=== PATIENT | male | born 1960 | race Two or more races ===

== ENCOUNTER 2017-02-21 12:03 | Emergency (ER) | payer OTHER ==
[~2017-02-21] VITALS: Ht 170.2 cm; Wt 88.9 kg
[~2017-02-21 12:03] MED LIST: AMLO5TAB2 PO; ASPI81TA2 PO; CHOLESTEROL MED
[2017-02-21 12:08] VITALS: BP 126/84
--- NOTE | 2017-02-21 12:11 | NUR ---
Pt ambulatory to ed bed 09 with c/o left leg pain s/p fall on wednesday, denies KO. pt sts pain is worse when walking/moving. vss nad rr even and unlabored. skin is warm and non diaphoretic. pending er md sotelo
--- NOTE | 2017-02-21 14:46 | NUR ---
Patient discharged to home in stable condition. Written and verbal after care instructions given. Patient verbalizes understanding of instruction.
== END 2017-02-21 14:42 | disposition home or self-care (01) ==
LOC: ER 12:08
DX: S92.352A Displaced fracture of fifth metatarsal bone, left foot, initial encounter for closed fracture (principal); I10 Essential (primary) hypertension; E78.00 Pure hypercholesterolemia, unspecified; F10.10 Alcohol abuse, uncomplicated; Z79.82 Long term (current) use of aspirin; Z95.818 Presence of other cardiac implants and grafts; Z90.89 Acquired absence of other organs; W01.0XXA Fall on same level from slipping, tripping and stumbling without subsequent striking against object, initial encounter; Y93.89 Activity, other specified; Y92.89 Other specified places as the place of occurrence of the external cause; Y99.8 Other external cause status
CPT/HCPCS: 29515; 73630; 99284; A4606; Z7610

== ENCOUNTER 2020-05-02 14:56 | Emergency (ER) | payer MEDICAID, OTHER ==
[~2020-05-02] VITALS: Ht 170.2 cm; Wt 74.8 kg
[~2020-05-02 14:56] MED LIST changes: +AMLO-212 PO; -AMLO5TAB2 PO; +ASPI-1169 PO; -ASPI81TA2 PO
--- NOTE | 2020-05-02 15:28 | NUR ---
[id number] 93% AFTER AMBULATING, DR MALAVE INFORMED,CXR AND PCR SWAB ORDE
--- NOTE | 2020-05-02 17:27 | NUR ---
LOOKED FOR PATIENT OUTSIDE THE WAITING ROOM. UNABLE TO FIND PATIENT. CALLED PATIENT'S PHONE NUMBER AND STATED HE WENT HOME. PCR RESULT GIVEN OVER THE PHONE. Verbal after care instructions given. Patient verbalizes understanding of instruction.
[2020-05-02 17:28] VITALS: BP 121/68
== END 2020-05-02 17:28 | disposition left against medical advice (07) ==
LOC: ER 14:57
DX: U07.1 COVID-19 (principal); R42 Dizziness and giddiness; I10 Essential (primary) hypertension; Z95.5 Presence of coronary angioplasty implant and graft; E78.00 Pure hypercholesterolemia, unspecified; Z79.82 Long term (current) use of aspirin; Z79.899 Other long term (current) drug therapy
CPT/HCPCS: 71045; 87426; 99284; C9803

== ENCOUNTER 2024-01-02 21:37 | Emergency (ER) | payer MEDICAID, OTHER ==
[~2024-01-02] VITALS: Ht 167.6 cm; Wt 86.2 kg
[2024-01-02] MEDS ORDERED: ONDANSETRON HCL/PF 4 MG/2 ML VIAL ONE (22:55)
[2024-01-02] MEDS ORDERED: MORPHINE SULFATE INJ 2 MG/ML DISP.SYRIN ONE (22:55)
[2024-01-02] MEDS: ONDANSETRON HCL/PF - ER 4 MG/2 ML VIAL IV ONE (22:56)
[2024-01-02] MEDS: MORPHINE SULFATE INJ 2 MG/ML DISP.SYRIN IV ONE (22:56)
[2024-01-02 23:02] LABS: BASOPHILS % (AUTO) 0.3 % (0.0-2.0); EOSINOPHILS # (AUTO) 0.1 K/uL (0.0-0.7); EOSINOPHILS % (AUTO) 1.5 % (0.0-6.0); HEMATOCRIT 44 % (39-51); LYMPHOCYTES # (AUTO) 1.9 K/uL (0.8-4.8); LYMPHOCYTES % (AUTO) 21.4 % (20.0-44.0); MEAN CORPUSCULAR HEMOGLOBIN 29 PG (26.0-33.0); MEAN CORPUSCULAR HGB CONC 34 g/dl (31.0-36.0); MEAN CORPUSCULAR VOLUME 84 fL (80-96); MONOCYTES # (AUTO) 0.7 K/uL (0.1-1.30); MONOCYTES % (AUTO) 7.4 % (2.0-12.0); NEUTROPHILS # (AUTO) 6.2 K/uL (1.8-8.9); NEUTROPHILS % (AUTO) 69.4 % (43.0-81.0); PLATELET COUNT (AUTO) 193 K/uL (150-450); RED BLOOD CELL COUNT(AUTO) 5.24 MIL/uL (4.5-6.0); RED CELL DISTRIBUTION WIDTH 14.3 % (11.5-15.0)
[2024-01-02 23:22] LABS: ALBUMIN 3.4 g/dL (3.4-5.0); BILIRUBIN,TOTAL 0.5 mg/dL (0.2-1.0); CREATININE 0.8 mg/dL (0.6-1.3); POTASSIUM 4.3 mmol/L (3.5-5.1); TOTAL PROTEIN, SERUM 6.5 g/dL (6.4-8.2)
[2024-01-02 23:23] LABS: LACTIC ACID 0.8 mmol/L (0.4-2.0)
[2024-01-03] MEDS ORDERED: OMEP20TA20 PO (00:18)
[2024-01-03 00:36] VITALS: BP 136/78; TEMP 98; O2SAT 96
== END 2024-01-03 00:37 | disposition home or self-care (01) ==
LOC: ER 21:41
DX: K44.9 Diaphragmatic hernia without obstruction or gangrene (principal); K57.90 Diverticulosis of intestine, part unspecified, without perforation or abscess without bleeding; R10.13 Epigastric pain; I10 Essential (primary) hypertension; E78.00 Pure hypercholesterolemia, unspecified; R06.02 Shortness of breath
CPT/HCPCS: 99285; 74176; 96374; 71045; 96375; 93005; 85025; 83605; 83690; 36415; 80053; 84484; 83880; J2405 ×2; J2270

== ENCOUNTER 2024-08-23 17:04 | Inpatient (IN) | payer OTHER ==
[~2024-08-23] VITALS: Ht 167.6 cm; Wt 82.6 kg
[~2024-08-23 17:04] MED LIST changes: +OMEP20TA20 PO
[2024-08-23 17:42] LABS: BASOPHILS % (AUTO) 0.3 % (0.0-2.0); EOSINOPHILS # (AUTO) 0.1 K/uL (0.0-0.7); EOSINOPHILS % (AUTO) 1.5 % (0.0-6.0); HEMATOCRIT 47 % (39-51); HEMOGLOBIN 16.2 g/dL (13.5-17.5); LYMPHOCYTES # (AUTO) 1.1 K/uL (0.8-4.8); LYMPHOCYTES % (AUTO) 13.4 % (20.0-44.0); MEAN CORPUSCULAR HEMOGLOBIN 29 PG (26.0-33.0); MEAN CORPUSCULAR HGB CONC 35 g/dl (31.0-36.0); MEAN CORPUSCULAR VOLUME 84 fL (80-96); MONOCYTES # (AUTO) 0.5 K/uL (0.1-1.30); MONOCYTES % (AUTO) 5.9 % (2.0-12.0); NEUTROPHILS # (AUTO) 6.5 K/uL (1.8-8.9); NEUTROPHILS % (AUTO) 78.9 % (43.0-81.0); PLATELET COUNT (AUTO) 198 K/uL (150-450); RED BLOOD CELL COUNT(AUTO) 5.56 MIL/uL (4.5-6.0); RED CELL DISTRIBUTION WIDTH 14.3 % (11.5-15.0); WHITE BLOOD COUNT (AUTO) 8.3 K/uL (4.3-11.0)
[2024-08-23 17:51] LABS: CALCIUM, SERUM 9.5 mg/dL (8.5-10.1); CREATININE 0.8 mg/dL (0.6-1.3); POTASSIUM 3.7 mmol/L (3.5-5.1)
[2024-08-23 17:56] LABS: ALBUMIN 3.8 g/dL (3.4-5.0); BILIRUBIN,DIRECT 0.1 mg/dL (0.0-0.2); BILIRUBIN,TOTAL 0.5 mg/dL (0.2-1.0); TOTAL PROTEIN, SERUM 6.9 g/dL (6.4-8.2)
[2024-08-23 18:48] LABS: ACETAMINOPHEN <10 ug/ml (10-30); ALCOHOL, BLOOD < 3 mg/dL (0-10); SALICYLATE < 2.8 mg/dL (2.8-20.0)
[2024-08-23 18:56] LABS: APPEARANCE,URINE CLEAR (CLEAR); BILIRUBIN,URINE NEGATIVE (NEGATIVE); BLOOD, URINE NEGATIVE Ery/uL (NEGATIVE); COLOR,URINE YELLOW (YELLOW); KETONES,URINE NEGATIVE (NEGATIVE); LEUKOCYTE ESTERASE ,URINE NEGATIVE (NEGATIVE); NITRITE, URINE NEGATIVE (NEGATIVE); PH,URINE 6.5 (5.0-8.0); PROTEIN,URINE NEGATIVE (NEGATIVE); UGLUCOSE NEGATIVE (NEGATIVE); UROBILINOGEN,URINE 0.2 EU/dL (0.2)
[2024-08-23 19:06] LABS: AMPHETAMINE, URINE NEGATIVE (NEGATIVE); BARBITURATE, URINE NEGATIVE (NEGATIVE); BENZODIAZEPINE, URINE NEGATIVE (NEGATIVE); CANNABINOID, URINE NEGATIVE (NEGATIVE); COCCAINE, URINE NEGATIVE (NEGATIVE); OPIATE, URINE NEGATIVE (NEGATIVE); PHENCYCLIDINE SCREEN,URINE NEGATIVE (NEGATIVE)
[2024-08-23] MEDS ORDERED: Z GUARD REMEDY 4 OZ OINT TP PRN (20:30)
[2024-08-23] MEDS ORDERED: IV NS 0.9% 1,000 ML IV PRN ×2 (20:30→21:00)
[2024-08-23] MEDS ORDERED: ACETAMINOPHEN 325 MG TABLET PO PRN (20:30)
[2024-08-23] MEDS ORDERED: MAG HYDROX/AL HYDROX/SIMETH 30 ML UDC PO PRN (20:30)
[2024-08-23] MEDS ORDERED: ONDANSETRON HCL/PF 4 MG/2 ML VIAL IVP PRN (20:30)
[2024-08-23] MEDS ORDERED: HYDROCODONE/APAP 5/325MG TABLET PO PRN (20:30)
[2024-08-23] MEDS ORDERED: TEMAZEPAM 15 MG CAPSULE PO PRN (20:30)
[2024-08-23] MEDS ORDERED: MAGNESIUM HYDROXIDE 30 ML UDC PO PRN (20:30)
[2024-08-23] MEDS ORDERED: CLOP75TA15 PO (21:43)
[2024-08-23] MEDS ORDERED: CLON0.1T PO (21:43)
[2024-08-23] MEDS ORDERED: BENA20TA9 PO (21:43)
[2024-08-23] MEDS ORDERED: METO-357 PO (21:43)
[2024-08-23 22:00] VITALS: BP 134/86; TEMP 98.4; O2SAT 98
[2024-08-23] MEDS ORDERED: DOXA4TAB19 PO (22:01)
[2024-08-23 23:23] VITALS: BP_SYST 129; BP_SYST 134; BP_SYST 137; BP_DIAS 86; BP_DIAS 96; BP_DIAS 99; TEMP 98.4; O2SAT 98
[2024-08-24] VITALS: BP_SYST 127; BP_SYST 134; BP_DIAS 76; BP_DIAS 82; TEMP 98.2; O2SAT 98
[2024-08-24 04:00] VITALS: BP_SYST 134; BP_SYST 137; BP_DIAS 86; BP_DIAS 87; TEMP 98.1; O2SAT 98
[2024-08-24 04:40] VITALS: BP 137/86; TEMP 98; O2SAT 98
[2024-08-24 06:34] LABS: BASOPHILS % (AUTO) 0.4 % (0.0-2.0); EOSINOPHILS # (AUTO) 0.1 K/uL (0.0-0.7); EOSINOPHILS % (AUTO) 2.3 % (0.0-6.0); HEMATOCRIT 44 % (39-51); HEMOGLOBIN 14.9 g/dL (13.5-17.5); LYMPHOCYTES # (AUTO) 1.8 K/uL (0.8-4.8); LYMPHOCYTES % (AUTO) 28.1 % (20.0-44.0); MEAN CORPUSCULAR HEMOGLOBIN 29 PG (26.0-33.0); MEAN CORPUSCULAR HGB CONC 34 g/dl (31.0-36.0); MEAN CORPUSCULAR VOLUME 83 fL (80-96); MONOCYTES # (AUTO) 0.6 K/uL (0.1-1.30); NEUTROPHILS # (AUTO) 3.8 K/uL (1.8-8.9); NEUTROPHILS % (AUTO) 60.2 % (43.0-81.0); PLATELET COUNT (AUTO) 201 K/uL (150-450); RED BLOOD CELL COUNT(AUTO) 5.23 MIL/uL (4.5-6.0); RED CELL DISTRIBUTION WIDTH 13.8 % (11.5-15.0); WHITE BLOOD COUNT (AUTO) 6.3 K/uL (4.3-11.0)
[2024-08-24 06:37] LABS: CALCIUM, SERUM 8.8 mg/dL (8.5-10.1); CREATININE 0.7 mg/dL (0.6-1.3); MAGNESIUM 1.9 mg/dL (1.8-2.4); PHOSPHORUS 3.3 mg/dL (2.5-4.9); POTASSIUM 3.5 mmol/L (3.5-5.1)
[2024-08-24 07:30] VITALS: BP 136/88; TEMP 98.1; O2SAT 97
[2024-08-24] MEDS ORDERED: ASPI-1420 PO (08:08)
[2024-08-24] MEDS ORDERED: ATOR40TA PO (08:08)
[2024-08-24] MEDS ORDERED: OMEP20CA15 PO (08:08)
[2024-08-24] MEDS: PANTOPRAZOLE 40 MG TABLET.DR PO SCH (08:24)
[2024-08-24] MEDS: CLOPIDOGREL BISULFATE 75 MG TABLET PO SCH (08:24)
[2024-08-24 12:45] LABS: SERUM AMMONIA 8 umol/L (11-32)
[2024-08-24] MEDS ORDERED: IOHEXOL-350 100 ML VIAL IV ONE (13:20)
[2024-08-24] MEDS ORDERED: IV NS 0.9% 250 ML IV ONE (13:20)
[2024-08-24 16:05] VITALS: BP 141/86; TEMP 97.5; O2SAT 98
[2024-08-24 20:00] VITALS: BP_SYST 124; BP_SYST 129; BP_SYST 136; BP_SYST 146; BP_DIAS 64; BP_DIAS 79; BP_DIAS 91; TEMP 99; TEMP 99.1; O2SAT 97; O2SAT 99
[2024-08-24] MEDS: ATORVASTATIN 40 MG TABLET PO SCH (22:25)
[2024-08-25] VITALS: BP_SYST 126; BP_SYST 134; BP_DIAS 79; BP_DIAS 84; TEMP 98; O2SAT 99
[2024-08-25 04:00] VITALS: BP_SYST 129; BP_SYST 134; BP_DIAS 78; BP_DIAS 87; TEMP 97.5; O2SAT 99
[2024-08-25 05:00] VITALS: BP 134/87; TEMP 97.5; O2SAT 99
[2024-08-25 07:00] VITALS: BP 143/90; O2SAT 97
[2024-08-25 11:30] VITALS: BP 140/86; TEMP 97.7; O2SAT 97
== END 2024-08-25 18:19 | disposition home or self-care (01) | DRG 47 ==
LOC: ER 17:06 → TELE 20:38
PROVIDERS: ADMIT Nurse Practitioner Acute Care; ATTEND Internal Medicine
DX: G45.9 Transient cerebral ischemic attack, unspecified (principal); G93.40 Encephalopathy, unspecified; I10 Essential (primary) hypertension; I25.10 Atherosclerotic heart disease of native coronary artery without angina pectoris; E78.00 Pure hypercholesterolemia, unspecified; E78.5 Hyperlipidemia, unspecified; Z95.5 Presence of coronary angioplasty implant and graft; Z90.49 Acquired absence of other specified parts of digestive tract; Z79.82 Long term (current) use of aspirin; Z79.899 Other long term (current) drug therapy; E03.8 Other specified hypothyroidism; R42 Dizziness and giddiness; Z82.49 Family history of ischemic heart disease and other diseases of the circulatory system; Z79.02 Long term (current) use of antithrombotics/antiplatelets
CPT/HCPCS: 36415; 70450-TC; 70496-TC; 70498-TC; 71045-TC; 80048-TC; 80061-TC; 80076-TC; 82140-TC; 82607-TC; 83690-TC; 83735-TC; 83921; 84100-TC; 84439-TC; 84443-TC; 84480; 84484-TC; 85025-TC; 93307-TC; 93880-TC; 97112-TC; 97116-TC; 97530-TC; 97535-TC; G0378; G0480; J7050; Q9967